=== PATIENT | female | born 1975 | race Caucasian/White ===

== ENCOUNTER 2021-08-20 10:19 | Outpatient (REF) | payer OTHER, SELFPAY ==
[2021-08-20 13:44] LABS: Alanine Aminotransferase 12 U/L (0-31); Albumin Level 4.2 g/dL (3.5-5.0); Alkaline Phosphatase 126 U/L (39-117); Anion Gap 14 (12-20); Aspartate Amino Transferase 10 U/L (5-31); Bilirubin Total 0.3 mg/dL (0.0-1.0); Blood Urea Nitrogen 14 mg/dL (9-16); Calcium 9.7 mg/dL (8.4-10.2); Carbon Dioxide 30 mmol/L (22-29); Chloride 101 mmol/L (96-108); Cholesterol 239 mg/dL; Estimated Average Glucose 160 mg/dL; Estimated Glomerular Filt Rate > 60; Glucose Fasting 141 mg/dL (60-99); HDL Cholesterol 41 mg/dL; Hemoglobin A1c % 7.2 %; LDL Cholesterol Calculated 172 mg/dl; Potassium 4.2 mmol/L (3.3-5.1); Sodium 141 mmol/L (135-145); Total Protein 7.4 g/dL (6.5-8.0); Triglycerides 132 mg/dL
[2021-08-20 14:22] LABS: Creatinine Urine 303.81 mg/dL; Microalbum/Creatinine Ratio Ur 13.1 ug/mg cr
== END 2021-08-20 10:20 | disposition home or self-care (01) ==
LOC: HO.10HDL 10:19
PROVIDERS: Visit Provider Internal Medicine
DX: E11.9 Type 2 diabetes mellitus without complications (principal); E78.00 Pure hypercholesterolemia, unspecified; G47.33 Obstructive sleep apnea (adult) (pediatric); I10 Essential (primary) hypertension; R80.0 Isolated proteinuria
CPT/HCPCS: 36415; 80053; 80061; 82043; 83036

== ENCOUNTER 2021-12-23 11:32 | Outpatient (REF) | payer OTHER, SELFPAY ==
[2021-12-26 10:16] LABS: TS Negative Control Passed; TS Panel A 0; TS Panel B 0; TS Positive Control Passed; TSpotTB Negative (Negative)
== END 2021-12-23 11:33 | disposition home or self-care (01) ==
LOC: HO.10HDL 11:32
PROVIDERS: Visit Provider Internal Medicine
DX: Z00.00 Encounter for general adult medical examination without abnormal findings (principal); Z11.1 Encounter for screening for respiratory tuberculosis; R80.0 Isolated proteinuria; I10 Essential (primary) hypertension; E78.00 Pure hypercholesterolemia, unspecified; E11.9 Type 2 diabetes mellitus without complications
CPT/HCPCS: 36415; 86481

== ENCOUNTER → 2022-05-16 09:29 | Outpatient (BNVA) | payer OTHER, SELFPAY | PROVIDERS: PCP Internal Medicine; Visit Provider Surgery | DX: L72.11 Pilar cyst (principal) | CPT/HCPCS: 99202 ==

== ENCOUNTER 2022-06-20 10:59 | Outpatient (REF) | payer OTHER, SELFPAY ==
[2022-06-20 11:02] VITALS: BMI 37.8
[2022-06-20 11:03] VITALS: BP 147/97; PULSE 95; RESP 16; TEMP 36.4; O2SAT 98
[2022-06-20 11:45] VITALS: BP 131/82; PULSE 80; RESP 16; O2SAT 95
--- NOTE | 2022-06-20 12:16 | P.OP_ITS ---
Operative Note Operative Note Date of Service: 06/20/22 Narrative: Preoperative diagnosis: Excision of Pilar cyst x5 bilateral scalp Postoperative diagnosis: Same Procedure: Excision of Pilar cyst x5 bilateral scalp Surgeon: Yasir Peralta MD Credit Or Loans Officer: none Anesthesia: Local lidocaine 1% with epinephrine Indications for procedure: 47-year-old female patient presenting with multiple Pilar cysts including 1 in the left frontal scalp, 1 on the right frontal scalp and 3 in the posterior occipital scalp. Operative findings: Pilar cyst x5 as noted above each measuring 1 cm in diameter in the occipital region (3) and 1.5 cm in the frontal region (2). Specimen: Pilar cyst x5 Estimated blood loss: Less than 1 mL Complications: None Procedure details: Patient was brought to the minor surgery suite placed in a sitting position. The site of the 5 Pilar cysts were identified by the patient and marked with a skin scribe. After assuring informed consent and performing a surgical time-out the skin was prepped with Betadine and draped in a sterile fashion. Local anesthesia was infiltrated over each of the 5 cyst. Beginning in the posterior occipital lesions incision was made directly over the cyst and hemostat used to dissect free the Pilar cyst. This was sent to pathology for further examination. Skin was closed using a 3-0 Prolene suture. Attention was then directed to the 2 additional posterior occipital lesions which were individually in size with the scalpel in the next dissected free using a hemostat. Both incisions were closed using a 3-0 Prolene suture. Attention was then directed to the right frontal lesion which again was anesthetized with lidocaine 1% with epinephrine. Incision was then made directly over the cyst and the incision carried down to the subcutaneous tissue. The cyst was then dissected free from the surrounding subcutaneous tissue using a hemostat. Skin was then closed using a 3-0 Prolene suture. Finally the lesion in the left frontal scalp was incised with scalpel down to the subcutaneous tissue. The cyst was then dissected free from the surrounding subcutaneous tissue. Skin was then closed using a single 3-0 Prolene suture. Bacitracin was applied to all 5 incisions. The 5 Pilar cyst were passed off the table and sent as a specimen for further examination. The patient tolerated the procedure well. She was discharged to home in stable condition.
== END 2022-06-20 11:00 | disposition home or self-care (01) ==
LOC: HO.MS 10:59
PROVIDERS: PCP Internal Medicine; Visit Provider Surgery
PROC: (CPT 11422; principal; 2022-06-20 11:00)
DX: L72.11 Pilar cyst (principal)
CPT/HCPCS: 11422 ×2; 11421 ×3; 88304

== ENCOUNTER 2022-09-11 10:18 | Outpatient (REF) | payer OTHER, SELFPAY ==
[2022-09-11 10:48] LABS: MANUAL DIFF FLAG NO
[2022-09-11 11:01] LABS: Basophils Absolute Auto 0.1 X10*3/uL (0.0-0.2); Basophils Percent Auto 0.8 % (0-2); Eosinophils Absolute Auto 0.1 X10*3/uL (0.0-0.4); Eosinophils Percent Auto 1.8 % (0-4); Hematocrit 41.3 % (37.0-47.0); Hemoglobin 13.4 g/dl (12.0-16.0); Imm Gran Abs Auto 0.01 X10*3/uL (0.00-0.03); Imm Gran Pct Auto 0.2 % (0.0-0.4); Lymphocytes Absolute Auto 2.1 X10*3/uL (1.2-4.9); Mean Corpuscular HGB Conc 32.4 g/dl (31.0-35.0); Mean Corpuscular Hemoglobin 28.3 pg (27.0-33.0); Mean Corpuscular Volume 87.3 fL (80.0-98.0); Mean Platelet Volume 12.2 fL (9.4-12.3); Monocytes Absolute Auto 0.5 X10*3/uL (0.1-1.2); Monocytes Percent Auto 7.2 % (2-11); Neutrophils Absolute Auto 3.6 x10*3/uL (2.0-8.3); Platelet Count 235 X10*3/uL (160-400); Red Blood Count 4.73 X10*6/uL (4.20-5.50); Red Cell Distribution Width 13.5 % (11.0-16.0); White Blood Count 6.2 X10*3/uL (4.8-10.8)
[2022-09-11 11:08] LABS: Estimated Average Glucose 108 mg/dL; Hemoglobin A1c % 5.4 %
[2022-09-11 11:34] LABS: Alanine Aminotransferase < 6 U/L (0-31); Albumin Level 3.7 g/dL (3.5-5.0); Alkaline Phosphatase 114 U/L (39-117); Anion Gap 11 (12-20); Aspartate Amino Transferase 11 U/L (5-31); Bilirubin Total 0.3 mg/dL (0.0-1.0); Blood Urea Nitrogen 9 mg/dL (9-16); Calcium 9.2 mg/dL (8.4-10.2); Carbon Dioxide 31 mmol/L (22-29); Chloride 101 mmol/L (96-108); Estimated Glomerular Filt Rate > 60; Glucose Random 96 mg/dL (60-115); Sodium 139 mmol/L (135-145); Total Protein 6.6 g/dL (6.5-8.0)
[2022-09-11 11:42] LABS: Ferritin 69 ng/mL (10-250)
[2022-09-11 12:03] LABS: Vitamin B12 193 pg/mL (200-900)
== END 2022-09-11 10:19 | disposition home or self-care (01) ==
LOC: HO.10HDL 10:18
PROVIDERS: Visit Provider Internal Medicine
DX: E11.9 Type 2 diabetes mellitus without complications (principal); I10 Essential (primary) hypertension; L72.3 Sebaceous cyst; R80.0 Isolated proteinuria; Z98.84 Bariatric surgery status
CPT/HCPCS: 36415; 80053; 82607; 82728; 83036; 85025

== ENCOUNTER 2023-05-07 09:48 | Outpatient (REF) | payer OTHER, SELFPAY ==
[2023-05-07 10:36] LABS: MANUAL DIFF FLAG NO
[2023-05-07 11:05] LABS: Basophils Percent Auto 0.5 % (0-2); Eosinophils Absolute Auto 0.1 X10*3/uL (0.0-0.4); Eosinophils Percent Auto 1.4 % (0-4); Hematocrit 41.1 % (37.0-47.0); Hemoglobin 13.1 g/dl (12.0-16.0); Imm Gran Abs Auto 0.01 X10*3/uL (0.00-0.03); Imm Gran Pct Auto 0.2 % (0.0-0.4); Lymphocytes Absolute Auto 2.8 X10*3/uL (1.2-4.9); Lymphocytes Percent Auto 43.4 % (20-40); Mean Corpuscular HGB Conc 31.9 g/dl (31.0-35.0); Mean Corpuscular Hemoglobin 28.3 pg (27.0-33.0); Mean Corpuscular Volume 88.8 fL (80.0-98.0); Mean Platelet Volume 12.4 fL (9.4-12.3); Monocytes Absolute Auto 0.4 X10*3/uL (0.1-1.2); Monocytes Percent Auto 5.8 % (2-11); Neutrophils Absolute Auto 3.1 x10*3/uL (2.0-8.3); Neutrophils Percent Auto 48.7 % (45-73); Platelet Count 185 X10*3/uL (160-400); Red Blood Count 4.63 X10*6/uL (4.20-5.50); Red Cell Distribution Width 13.4 % (11.0-16.0); White Blood Count 6.4 X10*3/uL (4.8-10.8)
[2023-05-07 11:17] LABS: Estimated Average Glucose 111 mg/dL; Hemoglobin A1C 137.3288 umol/L; Hemoglobin A1c % 5.5 %
[2023-05-07 12:22] LABS: Alanine Aminotransferase 14 U/L (0-31); Albumin Level 3.7 g/dL (3.5-5.0); Alkaline Phosphatase 96 U/L (39-117); Anion Gap 8 (12-20); Aspartate Amino Transferase 13 U/L (5-31); Bilirubin Total 0.4 mg/dL (0.0-1.0); Blood Urea Nitrogen 15 mg/dL (9-16); Calcium 8.8 mg/dL (8.4-10.2); Carbon Dioxide 30 mmol/L (22-29); Chloride 107 mmol/L (96-108); Cholesterol 163 mg/dL; Estimated Glomerular Filt Rate > 60; Glucose Fasting 93 mg/dL (60-99); HDL Cholesterol 50 mg/dL; LDL Cholesterol Calculated 96 mg/dl; Potassium 4.1 mmol/L (3.3-5.1); Sodium 141 mmol/L (135-145); Total Protein 6.8 g/dL (6.5-8.0); Triglycerides 85 mg/dL
[2023-05-07 12:37] LABS: Folate 10.9 ng/mL (> or = 4.0); Vitamin B12 280 pg/mL (200-900)
== END 2023-05-07 09:49 | disposition home or self-care (01) ==
LOC: HO.10HDL 09:48
PROVIDERS: Visit Provider Internal Medicine
DX: Z00.00 Encounter for general adult medical examination without abnormal findings (principal); E11.9 Type 2 diabetes mellitus without complications; D51.9 Vitamin B12 deficiency anemia, unspecified; I10 Essential (primary) hypertension
CPT/HCPCS: 36415; 80053; 80061; 82607; 82746; 83036; 85025

== ENCOUNTER 2023-11-18 09:45 | Outpatient (REF) | payer OTHER, SELFPAY | END 2023-11-18 09:46 | disposition home or self-care (01) | LOC: HO.LAB 09:45 | PROVIDERS: PCP Internal Medicine; Visit Provider Internal Medicine | DX: Z13.89 Encounter for screening for other disorder (principal) ==

== ENCOUNTER 2024-11-21 11:50 | Outpatient (REF) | payer SELFPAY ==
[2024-11-21 12:58] LABS: MANUAL DIFF FLAG NO
[2024-11-21 13:07] LABS: Basophils Percent Auto 0.6 % (0-2); Eosinophils Absolute Auto 0.1 X10*3/uL (0.0-0.4); Eosinophils Percent Auto 2.3 % (0-4); Hematocrit 42.3 % (37.0-47.0); Hemoglobin 13.3 g/dl (12.0-16.0); Imm Gran Abs Auto 0.01 X10*3/uL (0.00-0.03); Imm Gran Pct Auto 0.2 % (0.0-0.4); Lymphocytes Absolute Auto 2.2 X10*3/uL (1.2-4.9); Lymphocytes Percent Auto 35.1 % (20-40); Mean Corpuscular HGB Conc 31.4 g/dl (31.0-35.0); Mean Corpuscular Hemoglobin 28.3 pg (27.0-33.0); Mean Platelet Volume 11.9 fL (9.4-12.3); Monocytes Absolute Auto 0.5 X10*3/uL (0.1-1.2); Monocytes Percent Auto 7.9 % (2-11); Neutrophils Absolute Auto 3.3 x10*3/uL (2.0-8.3); Neutrophils Percent Auto 53.9 % (45-73); Platelet Count 181 X10*3/uL (160-400); Red Cell Distribution Width 13.8 % (11.0-16.0); White Blood Count 6.2 X10*3/uL (4.8-10.8)
[2024-11-21 13:31] LABS: Alanine Aminotransferase 11 U/L (0-31); Albumin Level 3.9 g/dL (3.5-5.0); Alkaline Phosphatase 100 U/L (39-117); Anion Gap 8 (12-20); Aspartate Amino Transferase 17 U/L (5-31); Bilirubin Total 0.3 mg/dL (0.0-1.0); Blood Urea Nitrogen 11 mg/dL (9-16); Carbon Dioxide 30 mmol/L (22-29); Chloride 108 mmol/L (96-108); Cholesterol 222 mg/dL (<200); Estimated Glomerular Filt Rate > 60; Glucose Random 105 mg/dL (60-115); HDL Cholesterol 58 mg/dL (>40); LDL Cholesterol Calculated 142 mg/dL (<100); Sodium 142 mmol/L (135-145); Triglycerides 114 mg/dL (<150)
[2024-11-21 13:52] LABS: Folate 11.9 ng/mL (> or = 4.0); Vitamin B12 325 pg/mL (200-900)
[2024-11-23 19:48] LABS: TS Negative Control Passed; TS Panel A 0; TS Panel B 0; TS Positive Control Passed; TSpotTB Negative (Negative)
== END 2024-11-21 11:51 | disposition home or self-care (01) ==
LOC: HO.10HDL 11:50
PROVIDERS: Visit Provider Internal Medicine
DX: E78.00 Pure hypercholesterolemia, unspecified (principal); I10 Essential (primary) hypertension; L82.1 Other seborrheic keratosis; Z72.0 Tobacco use; Z98.84 Bariatric surgery status
CPT/HCPCS: 36415; 80053; 80061; 82607; 82746; 85025; 86481

== ENCOUNTER 2025-01-30 09:37 | Outpatient (REF) | payer OTHER, SELFPAY ==
[2025-02-08 12:55] LABS: HPV Genotype 16 Negative (Negative); HPV Genotype 18 Negative (Negative); HPV High Risk Negative (Negative)
== END 2025-01-30 09:38 | disposition home or self-care (01) ==
LOC: HO.LNP 09:37
PROVIDERS: PCP Internal Medicine; Visit Provider Advanced Practice Midwife
DX: Z01.419 Encounter for gynecological examination (general) (routine) without abnormal findings (principal); N95.1 Menopausal and female climacteric states; Z11.51 Encounter for screening for human papillomavirus (HPV); E10.9 Type 1 diabetes mellitus without complications; I10 Essential (primary) hypertension; F17.210 Nicotine dependence, cigarettes, uncomplicated
CPT/HCPCS: 87626; 88175; 99386; 99459

== ENCOUNTER 2025-01-30 09:39 | Outpatient (AMB) | payer OTHER, SELFPAY ==
--- NOTE | 2025-01-30 09:38 | MHC.OFFVIS ---
Vital Signs 01/30/25 09:39 Height 5 ft Weight 180 lb BMI 35.2 BP 120/84 Intake Visit Reasons: New patient/ Annual Intake Note: No concerns. Due for mammo and pap ,last colonoscopy 1 yrs ago per patient. Vp & General Counsel Required: Yes Vp & General Counsel Language: Georgian Information Interpreted: non-clinical & clinical Brake Repairer Air: Brake Repairer Air Present (Katy DE LA TORRE) Accompanied by: Self / Same As Patient Allergies No Known Allergies Allergy (Verified 01/30/25 09:40) Medication List - Last Reconciled 01/30/25 by Mahi Hall CNM atorvastatin 80 mg PO DAILY blood sugar diagnostic (FreeStyle Lite Strips) As directed cholecalciferol (vitamin D3) 1,250 mcg PO QWEEK glipizide ER 2.5 mg PO DAILY lisinopril-hydrochlorothiazide 20-25 mg 1 tab PO DAILY loratadine 10 mg PO DAILY mecobalamin (vitamin B12) 1,000 mcg sublingual DAILY Post menopausal: Yes HPI HPI New patient/ Annual : Details: Patient is here is a new media developer annual exam. She says it has been a couple of years or more since she has had a media developer exam she has never had an abnormal Pap smear she used to go to [facility] for media developer care she changed her doctor to doctor Lavonne and so is transferring all her care over here.. She has not had a mammogram in over a couple of years either she is sexually active with her she has no worries at all about infection and no symptoms of anything. She has never had an abnormal Pap smear she declines testing for STIs as not necessary.. She works as a REMOTE ADVISOR She had bariatric surgery about 3 years ago and lost about 50 lb and her diabetes is so much better since that she does not need medication for that anymore still takes medication for her blood pressure. Her chart mentionss breast excision but it was an excision of a cyst on her head [facility] Medical History (Updated 01/30/25 @ 10:17 by Mahi Hall CNM) Hypertension Diabetes mellitus type 1 Hypercholesteremia Asthma Surgical History History of breast lump/mass excision (06/20/22) History of excision of mass History of appendectomy History of tubal ligation History of gastric bypass Family History (Updated 01/30/25 @ 09:44 by Katy Marroquin CMA) Maternal Grandmother Breast cancer Father HTN (hypertension) Diabetes Mother HTN (hypertension) Diabetes Social History (Updated 01/30/25 @ 09:45 by Katy Marroquin CMA) Household Members: Spouse Housing: Apartment Alcohol intake: current Alcohol intake frequency: holidays/special occasions only Patient Tobacco Use Status: Former Tobacco user Cigarettes Per Day: 5 Current occupational status: employed Current occupation: REMOTE ADVISOR Sexual orientation: Straight/Heterosexual Gender identity: Female Female Reproductive History Menstrual control method: permanent sterilization Menopause type: natural Total pregnancies: 2 Full term: 2 Number of Living Children: 2 Physical Exam Vital Signs: Last Vital Signs BP 120/84 01/30/25 09:39 BMI result Body Mass Index 35.2 Const General: healthy appearing, comfortable, no acute distress, well developed and alert Nutritional Appearance: average body habitus Orientation/consciousness: patient oriented x3 Limitations: no limitations HEENT Head: Yes normocephalic Neck Neck: Yes normal visual inspection Chest Chest palpation & inspection: normal inspection of the chest Breast/axilla inspection: normal inspection of the breasts and normal inspection of the axillae Breast/axilla palpation: normal palpation of the breasts and normal palpation of the axillae Resp Effort & Inspection: normal respiratory effort GI Inspection: Yes normal to inspection, No Abdominal wall edema and No distended Palpation (GI): Soft to palpation and nontender Other: External exam within normal limits vagina is pink and a little bit dry scant white discharge that appears within normal limits cervix long thick closed extremely well supported in vagina high up in vagina uterus small mobile nontender adnexa and mobile nontender no organomegaly good tone with Kegel. General: Yes bladder normal to palpation External Female Exam: normal external appearance and normal appearance of the urethra Speculum Exam - Vagina: normal appearance of the vagina, normal palpation and normal vaginal discharge Speculum Exam - Cervix: normal appearance of the cervix, normal palpation and nontender Bimanual exam- vagina & uterus: normal bimanual exam, normal palpation, uterine size normal, bladder normal to palpation, consistency normal, normal palpation, uterine mobility normal, uterine shape normal, No Cervical tenderness present, non-tender and no cervical motion tenderness Bimanual Exam- Adnexa, other: normal adnexae, no masses, normal and No adnexal tenderness Neuro General: patient oriented x3 Assessment & Plan Assessment & Plan (1) Breast cancer screening: Code(s): Z12.39 - Encounter for other screening for malignant neoplasm of breast Category: Medical (2) Well woman exam with routine gynecological exam: Code(s): Z01.419 - Encounter for gynecological examination (general) (routine) without abnormal findings Category: Medical (3) Cervical cancer screening: Code(s): Z12.4 - Encounter for screening for malignant neoplasm of cervix Category: Medical (4) Perimenopause: Comment: States in menopause for the last year and a half, no menses, Code(s): N95.1 - Menopausal and female climacteric states Category: Medical (5) Diabetes mellitus type 1: Comment: Patient states it is well-controlled since weight loss after bariatric surgery.... Code(s): E10.9 - Type 1 diabetes mellitus without complications Category: Medical (6) Hypertension: Code(s): I10 - Essential (primary) hypertension Category: Medical Plan -----Discussed in this visit the following: healthy balanced diet, regular and consistent exercise, getting recommended health screens, doing the best she can for her particular health concerns, kegel exercises, pap smear screening and followup recommendations, mammography screening and SBE, normal changes in cycles in her life stage--- . I am ordering a mammogram for her she is doing well with her weight loss after bariatric surgery some years ago and says her diabetes is under good control her hypertension as well seems to be under good control in that she is normotensive today she does take medication for that. Pap smear was done today patient had no abnormal discharge or concerns about infection so no STI testing is done. Discussed the changes in menopause she is not particularly bothered by them and does not have any particular issues even with vaginal dryness did discuss water-based lubricant if she needs it. RTC next year, mammogram ordered Timeframe/Date Comment Mammogram and RTC 1 year Orders: Orders Pap Smear Today Z01.419 - Encounter for gynecological examination (general) (routine) without abnormal findings HPV High risk Today Z01.419 - Encounter for gynecological examination (general) (routine) without abnormal findings MM tomosynthesis screening BI Today N95.1 - Menopausal and female climacteric states, Z01.419 - Encounter for gynecological examination (general) (routine) without abnormal findings, Z12.31 - Encounter for screening mammogram for malignant neoplasm of breast, Z12.39 - Encounter for other screening for malignant neoplasm of breast, Z12.4 - Encounter for screening for malignant neoplasm of cervix Coding Level of Care Code New Pt Prev Care 40-64y([id number]) Diagnoses Breast cancer screening Z12.39 Well woman exam with routine gynecological exam Z01.419 Cervical cancer screening Z12.4 Perimenopause N95.1 Diabetes mellitus type 1 E10.9 Hypertension I10
[2025-01-30 09:39] VITALS: BP 120/84; BMI 35.2
--- OUTSIDE RECORDS SUMMARY | 2025-01-30 10:30 | XMS_ITS | Clinical Summary ---
Author Organization [address] [facility] Address [address] [place] [address] Phone Care Team Providers Care Department Traffic Freight Router Name Role Phone Heather Cuadra MD Primary Care Provider [phone] Allergies No known active allergies Medications topiramate (TOPAMAX) 50 mg tablet Take 1 tablet (50 mg total) by mouth 1 (one) time each day. 4 Active buPROPion XL (WELLBUTRIN XL) 150 mg 24 hr tablet Take 1 tablet (150 mg total) by mouth 1 (one) time each day in the morning. 4 Active bisacodyL (DULCOLAX) 5 mg EC tablet Take 2 tablets by mouth right before your first dose of liquid prep. 4 Active amLODIPine (NORVASC) 5 mg tablet 4 Active atorvastatin (LIPITOR) 80 mg tablet 4 Active fluticasone HFA (Flovent HFA) 110 mcg/actuation inhaler Inhale 2 puffs by mouth 2 (two) times a day. 4 Active lidocaine (LIDODERM) 5 % patch APPLY TOPICALLY TO PAINFUL JOINT DAILY 4 Active lisinopril-hydr oCHLOROthiazide (PRINZIDE,ZESTO RETIC) 20-25 mg per tablet 4 Active naproxen (NAPROSYN) 500 mg tablet Take 1 tablet (500 mg total) by mouth 2 (two) times a day. 4 Active loratadine 10 mg capsule Take by mouth. Acti ve nicotine (NICODERM CQ) 14 mg/[address] 1 Patch onto the skin every 24 hours. Active cyanocobalamin, vitamin B-12, 1,000 mcg tablet, sublingual Place 1 Tablet under the tongue daily. 3 Active cholecalciferol (VITAMIN D-3) 50 mcg (2,000 unit) tablet Take 1 tablet (2,000 Units total) by mouth 1 (one) time each day. 3 Active nystatin, bulk, 10 billion unit powder Apply to area of rash bid. 3 Active pantoprazole (PROTONIX) 40 mg EC tablet Take 1 tablet (40 mg total) by mouth 1 (one) time each day. 2 Active UNABLE TO FIND Ondansetron 4 MG FILM, Take 4 mg by mouth every 8 hours as needed (nausea). 2 Active UNABLE TO FIND Wheat Dextrin (Benefiber) Powder, Take 4 g by mouth daily. 2 Active LISINOPRIL ORAL Take by mouth. Active Active Problems Problem Noted Date Diagnosed Date HTN (hypertension) 10/27/2024 Class 3 severe obesity due t o excess calories with serious comorbidity and body mass index (BMI) of 40.0 to 44.9 in adult 10/27/2024 Surgical History Surgery Date Site/Laterality Comments APPENDECTOMY PROCEDURE: LAPAROSCOPIC APPENDECTOMY OTHER SURGICAL HISTORY PROCEDURE: HISTORICAL ESSURE (BILATERAL OCCLUSION FALLOPIAN TUBES-PERMA) Medical History Medical History Date Comments HTN (hypertension) DX:HTN (hyper tension) Mixed hyperlipidemia DX:Mixed hy perlipidemia Family History Medical History Relation Name Comments Other: DM Father Other: DM Mother Relation Name Status Comments Father Mother Social History Tobacco Use Types Packs/Day Years Used Date Smoking Tobacco: Light Smoker Smokeless Tobacco: Never Alcohol Use Standard Drinks/Week Comments Yes 0 (1 standard drink = 0.6 oz pur e alcohol) Comments Unknown Sex and Gender Information Value Date Recorded Sex Assigned at Not on file Legal Sex Female 2:14 AM EST Gender Identity Not on file Sexual Orientation Not on file Obstetrics History Last Filed Vital Signs Vital Sign Reading Time Taken Comments Blood Pressure 139/96 05/12/2024 3:48 PM EDT Pulse 78 05/12/2024 3:48 PM EDT Temperature - - Respiratory Rate - - Oxygen Saturation - - Inhaled Oxygen Concentration - - Weight 81.1 kg (178 lb 12.8 oz) 05/12/2024 3:48 PM EDT Height 152.4 cm (5') 05/12/2024 3:48 PM EDT Body Mass Index 34.92 05/12/2024 3:48 PM EDT Plan of Treatment Upcoming Encounters Date Type Department Care Team (Late st Contact Info) Description 02/09/2025 11:45 AM EDT Office Visit Bariatric Surgery - [facility] [address] [facility] [address] [place] [id number] Bella Jean Baptiste MD [address] [facility] [address] [place] [address] Health Maintenance Due Date Last Done Comments DTaP,Tdap,and Td Vaccines (1 - Tdap) 1993 Hepatitis B Vaccines (1 of 3 - 19+ 3-dose series) 1993 Pneumococcal Vaccine: 50+ Years (1 of 2 - PCV) 1993 Pneumococcal Vaccine: Pediatrics (0 to 5 Years) and At-Risk Patients (6 to 64 Years) (1 of 2 - PCV) 1993 Cervical Cancer Screening: P ap Smear 1995 HIV Screening 10/25/2022 Hepatitis C Screening 10/25/2022 Hypertension/CHF/CAD Annual BMP Blood Test 10/25/2022 06/06/2021 Social Influencers of Health Screening 10/25/2022 Zoster Vaccines (1 of 2) 2024 COVID-19 Vaccine (1 - 2023-2 5 season) 2024 Influenza Vaccine (#1) 2024 Depression Screening 05/18/2025 05/18/2024 Breast Cancer Screening 02/21/2026 02/22/20 24, 03/18/2021, 07/29/2018 Cholesterol Screening (Lipid Panel) 06/06/2026 06/06/2021 Colorectal Cancer Screening: Colonoscopy 05/10/2034 05/10/2024 HIB Vaccines Aged Out No longer eligi ble based on patient's age to complete this topic HPV Vaccines Aged Out No longer eligi ble based on patient's age to complete this topic Hepatitis A Vaccines Aged Out No long er eligible based on patient's age to complete this topic IPV Vaccines Aged Out No longer eligi ble based on patient's age to complete this topic MMR Vaccines Aged Out No longer eligi ble based on patient's age to complete this topic Meningococcal ACWY Vaccine Aged Out N o longer eligible based on patient's age to complete this topic Meningococcal B Vacine Aged Out No lo nger eligible based on patient's age to complete this topic RSV Immunization Patients Under 20 months Aged Out No longer eligible b ased on patient's age to complete this topic Varicella Vaccines Aged Out No longer eligible based on patient's age to complete this topic Procedures Procedure Name Priority Date/Time Associated Diagnosis Comments DEPRESSION SCREENING Routine 05/18/2024 COLONOSCOPY Routine 05/10/2024 JEFF SCREENING DIGITAL Routine 02/22/2024 3:10 PM EDT Encounter for screening mammogram for malignant neoplasm of breast ANNUAL BMP BLOOD TEST Routine 06/06/2021 LIPID PANEL Routine 06/06/2021 from Last 3 Months or Most Recently Relevant to Health Maintenance Results * Depression Screening (05/18/2024) Depression Screening abstracted Historical Provider HEALTH MAINTENANCE Final Result * Colonoscopy (05/10/2024) Colonoscopy abstracted, no interpretation Anatomical Region Laterality Modality Other Historical Provider HEALTH MAINTENANCE Final Result * JEFF SCREENING DIGITAL (02/22/2024 3:10 PM EDT) Anatomical Region Laterality Modality Mammography 02/22/2024 10:3 5 AM EDT Narrative 02/22/2024 3:[address] [facility] Diagnostic Imaging Department [address] [place] [id number] Patient: ??BACONCANDIDA MORLEY,IFICamden ?/Age/Sex: 1975 - 48 - F Unit#: ??[id number] ? Location/Status: ??SPDIMAM/REG CLI ? Mnemonic/Ordering Site: ??DIGSC/SPMAM Ordering Physician: ??HEATHER CUADRA MD [facility] Screening Digital - 02/22/24 - Report Status:Signed EXAM: [facility] Screening Digital EXAM DATE AND TIME: 02/22/2024 2:53 PM HISTORY: Annual screening COMPARISON: ??Multiple exams dating back to 2016 TECHNIQUE: Bilateral digital breast tomosynthesis was performed in the CC and MLO projections. Computer aided detection with [employer] 3D 3.1 was employed. TISSUE DENSITY: b. There are scattered areas of fibroglandular density. FINDINGS: No suspicious masses, grouped microcalcifications, or areas of architectural distortion are seen. The skin and vascularity are unremarkable. IMPRESSION: Stable mammographic appearance of the breasts. ??No evidence of malignancy is seen. A negative mammogram in the presence of a clinically suspicious palpable abnormality does not preclude the possibility of malignancy or alter the indications for biopsy. BI-RADS: ??Category 1: Negative RECOMMENDATION(S): 1: Routine screening mammogram BILATERAL in 1 year. 3341F, 7025F Dictating Physician: ??TIARA DURAND MD Electronically Signed by: ??TIARA DURAND MD Dic Date/Time: ??02/22/24 1509 Sign date/Time: ??02/22/24 1510 Procedure Note Tiara Durand MD - 07/04/2024 [facility] Diagnostic Imaging Department [address] [place] [id number] Patient: JORDI MORLEYROB /Age/Sex: 1975 - 48 - F Unit#: [id number] Location/Status: SPDIMAM/REG CLI Mnemonic/Ordering Site: [facility] Ordering Physician: HEATHER CUADRA MD [facility] Screening Digital - 02/22/24 - Report Status:Signed EXAM: [facility] Screening Digital EXAM DATE AND TIME: 02/22/2024 2:53 PM HISTORY: Annual screening COMPARISON: Multiple exams dating back to 2016 TECHNIQUE: Bilateral digital breast tomosynthesis was performed in the CCand MLO projections. Computer aided detection with [employer] 3D 3.1was employed. TISSUE DENSITY: b. There are scattered areas of fibroglandular density. FINDINGS: No suspicious masses, grouped microcalcifications, or areas ofarchitectural distortion are seen. The skin and vascularity are unremarkable. IMPRESSION: Stable mammographic appearance of the breasts. No evidence of malignancyis seen. A negative mammogram in the presence of a clinically suspicious palpable abnormality does not preclude the possibility of malignancy or alter the indications for biopsy. BI-RADS: Category 1: Negative RECOMMENDATION(S): 1: Routine screening mammogram BILATERAL in 1 year. 6741F, 7068F Dictating Physician: TIARA DURAND MD Electronically Signed by: TIARA DURAND MD Dic Date/Time: 02/22/24 7899 Sign date/Time: 02/22/24 1177 us Heather Cuadra MD IMG BI PROCEDURES Final Resul t * Annual BMP Blood Test (06/06/2021) Annual BMP Blood Test abstracted Historical Provider HEALTH MAINTENANCE Final Result * (ABNORMAL) Lipid panel (06/06/2021) LDL/HDL Ratio 6(A) 0 - 4 Triglycerides 149 0 - 150 mg/dL Cholesterol 235(A) 0 - 200 mg/dL HDL 42 >=40 mg/dL LDL Cholesterol 164(A) 0 - 100 mg/dL Blood Venous blood specimen / Unknown Historical Provider LAB BLOOD ORDERABLES Smita l Result from Last 3 Months or Most Recently Relevant to Health Maintenance Insurance [facility] Advance Directives Documents on File Type Date Recorded Patient Cap Blocker Expl anation Health Care Decision (hx) 01/30/2022 AD BATES DIRECTIVE Health Care Decision (hx) 01/30/2022 AD BATES DIRECTIVE Health Care Decision (hx) 01/30/2022 AD BATES DIRECTIVE Care Teams Department Traffic Freight Router Relationship Specialty Start Date End Date Heather Cuadra MD [address] [facility] [address] [place], [place] PCP - General Internal Medicine 09/02/21
== END 2025-01-30 10:13 | disposition home or self-care (01) ==
PROVIDERS: PCP Internal Medicine; Visit Provider Advanced Practice Midwife
DX: Z01.419 Encounter for gynecological examination (general) (routine) without abnormal findings (principal); N95.1 Menopausal and female climacteric states; E10.9 Type 1 diabetes mellitus without complications; I10 Essential (primary) hypertension
CPT/HCPCS: 99386; 99459

== ENCOUNTER 2025-03-24 10:18 | Outpatient (REF) | payer OTHER, SELFPAY ==
--- OUTSIDE RECORDS SUMMARY | 2025-03-24 10:46 | XMS_ITS | Clinical Summary ---
Author Organization 175 [facility] Address [address] [place] [address] Phone Care Team Providers Care Civil Engineering Professional Name Role Phone Heather Cuadra MD Primary Care Provider [phone] Allergies No known active allergies Medications topiramate [...] (BMI) of 40.0 to 44.9 in adult ([facility] V24, [facility] V28) 10/27/2024 Surgical History Surgery Date Site/Laterality Comments [...] Upcoming Encounters Date Type Department Care Team ([facility] st Contact Info) Description 06/13/2025 2:00 PM EDT Office Visit Bariatric Surgery - [place] [address] [facility] [address] [place] [id number] Bella Jean Baptiste MD [address] [facility] [address] [place] [address] Health Maintenance Due Date Last Done Comments [...] Vaccine (1 - 2023-2 5 season) 2024 Depression Screening 05/18/2025 05/18/2024 Influenza Vaccine (Season Ended) 2025 Breast Cancer Screening 02/21/2026 02/22/20 24, 03/18/2021, [...] age to complete this topic Meningococcal B Vaccine Aged Out No l onger eligible based on patient's age to complete [...] AM EDT Narrative 02/22/2024 3:10 PM EDT [facility] Diagnostic Imaging Department [address] [place] [address] [id number] Patient: ??ROB WESLEY ?/Age/Sex: 1975 - 48 - F Unit#: ??[id number] ? Location/Status: ??SPDIMAM/REG CLI ? Mnemonic/Ordering Site: ??DIGSC/SPMAM Ordering Physician: ??HEATHER CUADRA MD [facility] Screening Digital - 02/22/24 - Report Status:Signed EXAM: [facility] Screening Digital EXAM DATE AND TIME: 02/22/2024 2:53 PM HISTORY: Annual screening COMPARISON: ??Multiple exams dating back to 2016 TECHNIQUE: Bilateral digital breast tomosynthesis was performed in the CC and MLO projections. Computer aided detection with Big Stage 3D 3.1 was employed. TISSUE DENSITY: b. [...] Procedure Note Tiara Durand MD - 07/04/2024 [facility] Diagnostic Imaging Department [address] [place] [id number] Patient: ROB WESLEY /Age/Sex: 1975 - 48 - F Unit#: [id number] Location/Status: SPDIMAM/REG CLI Mnemonic/Ordering Site: [facility] Ordering Physician: HEATHER CUADRA MD [facility] Screening Digital - 02/22/24 - Report Status:Signed EXAM: [facility] Screening Digital EXAM DATE AND TIME: 02/22/2024 2:53 PM HISTORY: Annual screening COMPARISON: Multiple exams dating back to 2016 TECHNIQUE: Bilateral digital breast tomosynthesis was performed in the CCand MLO projections. Computer aided detection with Big Stage 3D 3.1was employed. TISSUE DENSITY: b. There [...] in 1 year. 3341F, 7025F Dictating Physician: TIARA DURAND MD Electronically Signed by: TIARA DURAND MD Dic Date/Time: 02/22/24 1509 Sign date/Time: 02/22/24 1510 Result [facility] Heather Cuadra MD IMG BI PROCEDURES Final Resul t * Annual BMP Blood Test (06/06/2021) Annual BMP Blood Test abstracted Result [facility] Historical Provider HEALTH MAINTENANCE Final Result * (ABNORMAL) Lipid panel (06/06/2021) LDL/HDL Ratio 6(A) 0 - 4 Triglycerides 149 0 - 150 mg/dL Cholesterol 235(A) 0 - 200 mg/dL HDL 42 >=40 mg/dL LDL Cholesterol 164(A) 0 - 100 mg/dL Blood Venous blood specimen / Unknown Result [facility] Historical Provider LAB BLOOD ORDERABLES Smita l Result from Last 3 Months or Most Recently Relevant to Health Maintenance Insurance [facility] [employer] Advance Directives Documents on File Type Date Recorded Patient Derrick Builder Expl anation Health Care Decision (hx) 01/30/2022 AD BATES DIRECTIVE Health Care Decision (hx) 01/30/2022 AD BATES DIRECTIVE Health Care Decision (hx) 01/30/2022 AD BATES DIRECTIVE Care Teams Civil Engineering Professional Relationship Specialty Start Date End Date Heather Cuadra MD [address] [facility] [address] [place], [place] PCP - General Internal Medicine 09/02/21
== END 2025-03-24 10:19 | disposition home or self-care (01) ==
LOC: HO.MAMMO 10:18
PROVIDERS: PCP Internal Medicine; Visit Provider Advanced Practice Midwife
DX: Z12.31 Encounter for screening mammogram for malignant neoplasm of breast (principal)
CPT/HCPCS: 77063; 77067

== ENCOUNTER → 2025-03-24 10:45 | Outpatient (BNV) | payer OTHER, SELFPAY | PROVIDERS: PCP Internal Medicine; Visit Provider Internal Medicine | DX: Z12.31 Encounter for screening mammogram for malignant neoplasm of breast (principal) | CPT/HCPCS: 77063; 77067 ==

== ENCOUNTER 2025-03-24 10:58 | Outpatient (REF) | payer OTHER, SELFPAY ==
--- OUTSIDE RECORDS SUMMARY | 2025-03-24 11:29 | XMS_ITS | Clinical Summary ---
Author Organization 175 [facility] Address [address] [place] [address] Phone Care Team Providers Care Production Assistant Name Role Phone Heather Cuadra MD Primary Care Provider [phone] Allergies No known active allergies Medications topiramate [...] (BMI) of 40.0 to 44.9 in adult ([facility] V24, [facility] V28) 10/27/2024 Surgical History Surgery [...] Upcoming Encounters Date Type Department Care Team ([facility] st Contact Info) Description 06/13/2025 2:00 PM EDT Office Visit Bariatric Surgery - [place] [address] [facility] [address] [place] [phone] Bella Jean Baptiste MD [address] [facility] [address] [place] [address] Health Maintenance Due Date Last Done Comments [...] AM EDT Narrative 02/22/2024 3:10 PM EDT [facility] Diagnostic Imaging Department [address] [place] [address] [id number] Patient: ??ROB WESLEY ?/Age/Sex: 1975 - 48 - F Unit#: ??[id number] ? Location/Status: ??SPDIMAM/REG CLI ? Mnemonic/Ordering Site: ??DIGSC/SPMAM Ordering Physician: ??HEATHER CUADRA MD [facility] Screening Digital - 02/22/24 - Report Status:Signed EXAM: [facility] Screening Digital EXAM DATE AND TIME: 02/22/2024 2:53 PM HISTORY: Annual screening COMPARISON: ??Multiple exams dating back to 2016 TECHNIQUE: Bilateral digital breast tomosynthesis was performed in the CC and MLO projections. Computer aided detection with StreetFire 3D 3.1 was employed. TISSUE DENSITY: b. [...] Procedure Note Tiara Durand MD - 07/04/2024 [facility] Diagnostic Imaging Department [address] [place] [id number] Patient: ROB WESLEY /Age/Sex: 1975 - 48 - F Unit#: [id number] Location/Status: SPDIMAM/REG CLI Mnemonic/Ordering Site: [facility] Ordering Physician: HEATHER CUADRA MD [facility] Screening Digital - 02/22/24 - Report Status:Signed EXAM: [facility] Screening Digital EXAM DATE AND TIME: 02/22/2024 2:53 PM HISTORY: Annual screening COMPARISON: Multiple exams dating back to 2016 TECHNIQUE: Bilateral digital breast tomosynthesis was performed in the CCand MLO projections. Computer aided detection with StreetFire 3D 3.1was employed. TISSUE DENSITY: b. There [...] 02/22/24 1509 Sign date/Time: 02/22/24 1510 Result [facility] Heather Cuadra MD IMG BI PROCEDURES Final Resul t * Annual BMP Blood Test (06/06/2021) Annual BMP Blood Test abstracted Result [facility] Historical Provider HEALTH MAINTENANCE Final Result * (ABNORMAL) Lipid panel (06/06/2021) LDL/HDL Ratio 6(A) 0 - 4 Triglycerides 149 0 - 150 mg/dL Cholesterol 235(A) 0 - 200 mg/dL HDL 42 >=40 mg/dL LDL Cholesterol 164(A) 0 - 100 mg/dL Blood Venous blood specimen / Unknown Result [facility] Historical Provider LAB BLOOD ORDERABLES Smita l Result from Last 3 Months or Most Recently Relevant to Health Maintenance Insurance [facility] [employer] Advance Directives Documents on File Type Date Recorded Patient Driver Medic Expl anation Health Care Decision (hx) 01/30/2022 AD BATES DIRECTIVE Health Care Decision (hx) 01/30/2022 AD BATES DIRECTIVE Health Care Decision (hx) 01/30/2022 AD BATES DIRECTIVE Care Teams Production Assistant Relationship Specialty Start Date End Date Heather Cuadra MD [address] [facility] [address] [place], [place] PCP - General Internal Medicine 09/02/21
[2025-03-24 12:09] LABS: Alanine Aminotransferase 13 U/L (0-31); Alkaline Phosphatase 112 U/L (39-117); Anion Gap 9 (12-20); Aspartate Amino Transferase 17 U/L (5-31); Bilirubin Total 0.4 mg/dL (0.0-1.0); Blood Urea Nitrogen 15 mg/dL (9-16); Calcium 9.9 mg/dL (8.4-10.2); Carbon Dioxide 33 mmol/L (22-29); Chloride 99 mmol/L (96-108); Cholesterol 182 mg/dL (<200); Estimated Glomerular Filt Rate > 60; Glucose Random 107 mg/dL (60-115); HDL Cholesterol 53 mg/dL (>40); LDL Cholesterol Calculated 115 mg/dL (<100); Potassium 3.9 mmol/L (3.3-5.1); Sodium 137 mmol/L (135-145); Total Protein 7.3 g/dL (6.5-8.0); Triglycerides 73 mg/dL (<150)
== END 2025-03-24 10:59 | disposition home or self-care (01) ==
LOC: HO.10HDL 10:58
PROVIDERS: Visit Provider Internal Medicine
DX: I10 Essential (primary) hypertension (principal); E78.00 Pure hypercholesterolemia, unspecified; Z00.01 Encounter for general adult medical examination with abnormal findings; Z72.0 Tobacco use
CPT/HCPCS: 36415; 80053; 80061